=== PATIENT | male | born 1980 | race Caucasian/White ===

== ENCOUNTER 2019-10-12 01:12 | Emergency (ER) | payer OTHER ==
[~2019-10-12] VITALS: Ht 188 cm; Wt 113.4 kg
[2019-10-12 01:29] VITALS: BP 129/87
[2019-10-12] MEDS ORDERED: KETOROLAC TROMETH 60MG/2ML VIAL IM ONE (07:00)
== END 2019-10-12 07:30 | disposition home or self-care (01) ==
LOC: ER 01:14
DX: S39.012A Strain of muscle, fascia and tendon of lower back, initial encounter (principal); X58.XXXA Exposure to other specified factors, initial encounter; Y93.89 Activity, other specified; Y92.89 Other specified places as the place of occurrence of the external cause; Y99.8 Other external cause status
CPT/HCPCS: 72100; 96372; 99283; J1885